=== PATIENT | male | born 1945 | race Hispanic/Latino ===

== ENCOUNTER 2016-05-04 06:36 | Day surgery (SDC) | payer MEDICARE ==
--- NOTE | 2016-04-23 13:28 | Anesthesia Consultation ---
Anesthesia Consult and Med Hx Date of service: 05/04/16 - Airway Anesthetic Teeth Evaluation: Dentures ROM Head & Neck: Adequate Mental/Hyoid Distance: Adequate Mallampati Class: Class II Intubation Access Assessment: Probably Good - Pulmonary Exam CTA: Yes - Cardiac Exam Cardiac Exam: RRR - Pre-Operative Health Status ASA Pre-Surgery Classification: ASA3 Proposed Anesthetic Plan: General - Pulmonary Hx Smoking: Yes (STOPPED X 10YRS-2PPD X 25YRS-CHEWING TABACCO NOW) COPD: Yes (USES INHALERS) Hx Sleep Apnea: No - Cardiovascular System Hx Hypertension: Yes (X 10 YRS) Hx Coronary Artery Disease: No Hx Peripheral Vascular Disease: Yes (LEFT AKA) - Central Nervous System 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 PATIENT DOES NOT WANT BLOCK FOR THIS SURGERY. MEDICAL CLEARANCE PENDING.
[2016-04-23 13:31] LABS: Basophils % (Auto) 1.1 % (0.0-1.8); Eosinophils % (Auto) 5.9 % (0.0-4.3); Hematocrit 41.5 % (35.5-45.6); Hemoglobin 13.7 gm/dl (11.8-15.2); Mean Corpuscular HGB Conc 33 % (32-34); Mean Corpuscular Hemoglobin 27 pg (28-32); Mean Corpuscular Volume 81 fl (84-94); Platelet Count 224 K/mm3 (140-440); Red Blood Count 5.12 M/mm3 (3.65-5.03); White Blood Count 8.5 K/mm3 (4.5-11.0)
[2016-04-23 13:47] LABS: Albumin 3.6 g/dL (3.9-5); Albumin/Globulin Ratio 0.9 %; Alkaline Phosphatase 77 units/L (35-129); Anion Gap 19 mmol/L; BUN/Creatinine Ratio 19.09; Bilirubin,Total 0.4 mg/dL (0.1-1.2); Blood Urea Nitrogen 21 mg/dL (9-20); Calcium 8.7 mg/dL (8.4-10.2); Carbon Dioxide 24 mmol/L (22-30); Chloride 98.7 mmol/L (98-107); Glucose 187 mg/dL (75-100); Sodium 137 mmol/L (137-145); Total Protein 7.5 g/dL (6.3-8.2)
[2016-04-23 15:02] LABS: Alanine Aminotransferase 11 units/L (7-56); Potassium 4.2 mmol/L (3.6-5.0)
[~2016-05-04 06:36] MED LIST: MARCAINE-EPI/PF 0.25%-1:200,000 INFILTRATI ONE; NACL 0.9% 1000 ML 1,000 ML IV SCH; PEPCID PO NR
[2016-05-04] MEDS ORDERED: NACL BACTERIOSTATIC INFILTRATI ONE (06:41)
[2016-05-04] MEDS ORDERED: XYLOCAINE MPF 2% ONE (07:11)
[2016-05-04] MEDS ORDERED: SUBLIMAZE ONE (07:11)
[2016-05-04] MEDS ORDERED: DIPRIVAN 10 MG/ML IV ONE (07:11)
[2016-05-04] MEDS ORDERED: ZEMURON IV ONE (07:11)
[2016-05-04] MEDS ORDERED: DILAUDID IV PRN (07:24)
[2016-05-04] MEDS ORDERED: ZOFRAN IV PRN (07:24)
--- NOTE | 2016-05-04 07:25 | Anesthesia Day of Surgery ---
Anesthesia Day of Surgery - Day of Surgery Patient Examined: Yes Patient H&P Reviewed: Yes Patient is NPO: Yes Cardiac Clearance: Yes
[2016-05-04] MEDS ORDERED: ANCEF/STERILE WATER 2 GM/20 ML IV NR (08:00)
[2016-05-04] MEDS ORDERED: ADRENALIN IV ONE (08:29)
[2016-05-04] MEDS ORDERED: NACL 0.9% IR ONE (08:29)
[2016-05-04] MEDS ORDERED: NEO SYNEPHRINE ONE (08:58)
[2016-05-04] MEDS ORDERED: ZOFRAN ONE (09:02)
[2016-05-04] MEDS ORDERED: DECADRON ONE (09:02)
[2016-05-04] MEDS ORDERED: NEOSTIGMINE ONE (09:46)
[2016-05-04] MEDS ORDERED: ROBINUL ONE (09:46)
[2016-05-04] MEDS ORDERED: MARCAINE-EPI/PF 0.25%-1:200,000 INFILTRATI ONE (10:00)
--- NOTE | 2016-05-04 10:18 | Short Stay Summary ---
Short Stay Documentation - Allergies and Medications Current Medications: Allergies codeine Allergy (Verified 04/14/16 14:01) Vomiting Home Medications Medication Instructions Recorded Confirmed Last Taken Type Aspirin [Aspirin TAB] 325 mg PO QDAY 04/14/16 05/04/16 1 Week Ago History Budesoni/Formotero 160-4.5(Nf) 1 puff INHALATION BID 04/14/16 04/14/16 05/04/16 03:30 History [Symbicort 160-4.5 (Nf)] Glimepiride [Amaryl] 2 mg PO QAM 04/14/16 04/14/16 05/03/16 History Losartan/Hydrochlorothiazide 1 tab PO DAILY 04/14/16 04/14/16 05/04/16 03:30 History [Losartan-Hctz 100-25 mg Tab] Pravastatin Sodium [Pravastatin] 40 mg PO QHS 04/14/16 04/14/16 05/03/16 History Tamsulosin [Flomax] 0.4 mg PO QDAY 04/14/16 04/14/16 05/03/16 History HYDROmorphone [Dilaudid] 2 mg PO Q6HR PRN #30 tablet 05/04/16 Unknown Rx Active Medications Cefazolin Sodium (Ancef/Sterile Water 2 Gm/20 Ml) 2 gm IV PREOP NR Stop: 05/04/16 23:59 Famotidine (Pepcid) 20 mg PO PREOP NR Stop: 05/04/16 23:59 Last Admin: 05/04/16 06:53 Dose: 20 mg Hydromorphone HCl (Dilaudid) 0.5 mg IV Q10MIN PRN PRN Reason: Pain , Severe (7-10) Stop: 05/04/16 23:00 Sodium Chloride (Nacl 0.9% 1000 Ml) 1,000 mls @ 75 mls/hr IV DIRECT GIRMA Last Admin: 05/04/16 07:05 Dose: 75 mls/hr - Brief post op/procedure progress note Date of procedure: 05/04/16 Pre-op diagnosis: persistent right shoulder pain, ac joint arthritis, rotator cuff tear, labr Post-op diagnosis: other (persistent right shoulder pain, acromioclavicular joint arthritis, massive rotator cuff tear, long head biceps tear, degenerative wear of anterior and superior labrum, extensive subacromial bursitis) Procedure: right shoulder arthroscopy subacromial decompression distal clavicle excision, debriedment of extensive subacromial bursitis, biceps tenotomy, debriedment of degenerative wear of anterior and superior labrum, arthroscopic repair massive rotator cuff tear Anesthesia: JEANNE Surgeon: DOROTEO GARCIA Estimated blood loss: minimal Pathology: none Condition: stable - Hospital course Hospital course: stable - Disposition Condition at discharge: Good Disposition: DISCHARGED TO HOME OR SELFCARE Short Stay Discharge Plan Activity: other (do not lift anything with right arm, sling to right arm, ice to right shoulder) Weight Bearing Status: Non-Weight Bearing Diet: regular Wound: keep clean and dry Special Instructions: keep arm in sling for 72 hours Follow up with: LESTER RODNEY MD [Primary Care Provider] - 7 Days Prescriptions: HYDROmorphone [Dilaudid] 2 mg PO Q6HR PRN #30 tablet PRN Reason: Analgesia
--- NOTE | 2016-05-04 10:49 | Post Anesthesia Evaluation ---
- Post Anesthesia Evaluation Patient Participated: Yes Airway Patent: Yes Stable Respiratory Function: Yes Nausea/Vomiting: No Temp > 96.8F: Yes Pain Manageable: Yes Adequeate Hydration: Yes Anesthesia Complications: No Block Receding Appropriately: Not Applicable Patient on Ventilator: No
--- NOTE | 2016-05-04 15:49 | Operative Report ---
PREOPERATIVE DIAGNOSES: Persistent right shoulder pain, advanced acromioclavicular joint arthritic changes with a type 3 acromion, partial biceps tear, possible labral tear, full thickness large rotator cuff tear. POSTOPERATIVE DIAGNOSES: Persistent right shoulder pain, advanced acromioclavicular joint arthritic changes with type 3 acromion, almost complete rupture of the long head of the biceps tendon, massive tearing of the rotator cuff involving both supra as well as infraspinatus tendons with retraction, partial tear of the subscapularis, degenerative wear of the anterior and superior labrum, extensive subacromial bursitis. PROCEDURE: Right shoulder arthroscopy, subacromial decompression, distal clavicle excision, debridement of extensive subacromial bursitis, debridement of degenerative wear of the anterior and superior labrum, biceps tenotomy followed by arthroscopic repair of a massive rotator cuff tear involving both supraspinatus as well as infraspinatus tendons. SURGEON: Dain Higgins MD MACHINE WORKER: Celestina Torres CSA. PREOPERATIVE ANTIBIOTICS: Ancef 2 grams IV within 1 hour of skin incision. DVT PROPHYLAXIS: SCD pumps to the nonoperative right lower extremity. OPERATIVE INSTRUMENTATION: 7 metallic Opus rotator cuff anchors with corresponding #2 Cobraided sutures. OPERATIVE COMPLICATIONS: None. PREOPERATIVE HISTORY AND PHYSICAL: This is a 70-year-old male who has had persistent progressively worsening right shoulder pain and weakness for greater than 6 months' time. The patient failed to improve despite extensive nonoperative treatment, had a marked limitation of his normal activities of daily living. Preoperative MRI scans showed to be a large tear involving the rotator cuff as well as advanced acromioclavicular joint arthritic changes, as well as possible tears of the anterior labrum as well as biceps tendon. The patient's MRI findings and diagnosis were discussed at length. After making sure the patient understood his diagnosis and all of his questions were answered. We then discussed treatment alternatives of surgical and nonsurgical including risks and benefits of both. After a long lengthy discussion, made sure that the patient's all questions were answered, he wished to proceed with operative intervention. This will entail a right shoulder arthroscopy, subacromial decompression, distal clavicle excision, debridement of extensive subacromial bursitis, arthroscopic possible open rotator cuff repair, possible labral repair, possible biceps tenodesis versus tenotomy. Again, the risks, which were discussed include but not exclusive of infection, blood loss, nerve damage, loss of range of motion, persistent pain. Again, the patient understood, all of his questions were answered, he wished to proceed with operative intervention. DESCRIPTION OF PROCEDURE: The patient was seen in the preoperative holding room area at which point, informed consent was reviewed and appropriate right upper extremity was identified and then marked. The patient was then brought back to the operating room and placed supine on a standard operating table, at which point, general anesthesia was administered, endotracheal tube inserted. After confirmation of adequate general anesthesia and checking appropriate placement of endotracheal tube, we then made sure that all bony prominences were well padded. There were no wrinkles in the compression stockings on the right lower extremity and SCD pumps were applied to the right lower extremity. The patient was then sat up in the beach chair position. Using the beach chair position, which was already in place and his hip was secured in a nice neutral position. The well left arm was secured in neutral position at the patient's side with the aid of a well arm contreras. A pillow was placed in the posterior aspect of bilateral lower extremity, placed in slight flexion of the hips and knees, making sure the popliteal fossa was free and clear. Right upper extremity was then examined under anesthesia. The patient seemed to have full range of motion. There was no instability. On examination under anesthesia, the right upper extremity was then prepped and draped in the usual sterile fashion. After prepping and draping, a timeout was called and appropriate right upper extremity was identified which again had been marked with proper ____ procedure by first making a standard posterior portal with a #15 blade. Once the portals were established, the blunt trocar was inserted into the intra-articular aspect of the glenohumeral joint. This went without difficulty or damage to articular cartilage. Once in place, the arthroscopic camera was immediately placed in the anterior aspect of the shoulder joint where we established an anterior portal by first inserting an 18 gauge spinal needle between the subscap and biceps tendon under direct arthroscopic visualization. Once confirmed to be in appropriate position, a 15 blade was then used to establish the anterior portal. Once the portal was established, blunt trocar was inserted via the portal site. Following the arthroscopic probe, we began our diagnostic arthroscopy, anterior aspect of the shoulder joint. The patient seemed to have partial thickness tearing of the subscapularis tendon accomplishing approximately 10% of the width of the tendon. Especially, glenohumeral joint showed to be normal articular cartilage of both the glenoid and humeral head. There was degenerative wear of both anterior and superior labrum. This was gently debrided using a 4.0 meniscal shaver down to a nice smooth stable healthy remaining tissue. The origin of which was seen to be stable and intact when probed. There was a negative drive-through sign. Inspection of the posterior labrum showed to be intact and stable when probed. There was a normal ____ without a Hill-Sachs lesion. Inspection of the axillary recess showed to be no loose bodies present. Inspection of the subscap anteriorly showed to be partial thickness tearing accomplishing approximately 10-15% of the width of the tendon, which was gently debrided using 4.0 meniscal shaver. Degenerative wear of the anterior and superior labrum also debrided using 4.0 meniscal shaver down to a smooth stable healthy remaining tissue. The middle glenohumeral ligament was intact. There was approximately 90% tearing of the long head of the biceps tendon intraarticularly and this was ____ performed a biceps tenotomy in standard fashion. Once completed, we evaluated the rotator cuff. There was seemed to be massive tearing of both the superior as well as infraspinatus tendons with retraction. The arthroscopic camera was then removed from the glenohumeral joint and then placed in subacromial space. Once in the subacromial space, we saw there was severe extensive subacromial bursitis. This was gently debrided by first making a third incision on the lateral aspect of the shoulder and allowing the distal clavicle well away from the axillary nerve. Once the extensive subacromial bursitis had been debrided, hemostasis was achieved with the Arthrocare ablation wand. The arm was placed through range of motion. There was a large type 3 acromion contributing to impingement. The soft tissue was removed from the undersurface of the acromion using the Arthrocare ablation wand. Then, using a 4.0 hooded barrel bur, we carried out a subacromial decompression in standard fashion with inferior superior, posterior, and anterior to make sure not to leave any residual anterior ____. We then turned our attention to the distal clavicle. This was also seemed to be arthritic and we removed approximately 6 mm of distal clavicle using a 4.0 hooded barrel bur. Once completed, we turned our attention to the massive tearing of the rotator cuff. The adhesions were debrided. The rotator cuff was freed up and using arthroscopic grasper, we were able to pull this back down to the rotator cuff footprint. The atrophic edge of the tear was debrided using 4.0 meniscal vinod as well as the arthroscopic punches. Once completed, we then sequentially passed seven #2 Cobraided sutures in a horizontal mattress type fashion using the open suture passer, then tapped by hand and then inserted seven metallic clips Opus rotator cuff anchors using ____ anatomic repair of the rotator cuff back down into the rotator cuff footprint. Once completed, the arm was placed to full range of motion. We saw good excellent stability of the repair. There was no impingement of the rotator cuff upon the undersurface of the acromion or the distal clavicle. The repair was also probed and seemed to be stable. Following this, the arthroscopic pump was turned off, making sure there was good hemostasis and once this was confirmed, ____ subacromial space using arthroscopic cannula. Following this, all the arthroscopic instrumentation was removed. The 3 portal sites were closed with 3-0 nylon in simple fashion. Adaptic, 4 x 4, ABD, paper tape and a small abduction sling was applied. The patient then sat down from the beach chair in the supine position, was awakened from general anesthesia without complications, taken to recovery room in stable condition. A standard postoperative orders were written. JOB# [id number] ALETHEA/TINO
[2016-05-04 16:41] VITALS: BP 119/61
== END 2016-05-04 12:05 | disposition home or self-care (01) ==
LOC: OR 06:36
PROVIDERS: ATTEND Orthopaedic Surgery
DX: S46.011A Strain of muscle(s) and tendon(s) of the rotator cuff of right shoulder, initial encounter (principal); S46.111A Strain of muscle, fascia and tendon of long head of biceps, right arm, initial encounter; S43.431A Superior glenoid labrum lesion of right shoulder, initial encounter; M75.51 Bursitis of right shoulder; E11.9 Type 2 diabetes mellitus without complications; I10 Essential (primary) hypertension; E78.00 Pure hypercholesterolemia, unspecified; J44.9 Chronic obstructive pulmonary disease, unspecified; Z85.46 Personal history of malignant neoplasm of prostate; Z89.612 Acquired absence of left leg above knee; Z87.891 Personal history of nicotine dependence; Z86.73 Personal history of transient ischemic attack (TIA), and cerebral infarction without residual deficits; Z79.899 Other long term (current) drug therapy; Z98.1 Arthrodesis status; X58.XXXA Exposure to other specified factors, initial encounter
CPT/HCPCS: 29823; 29824; 29826; 29827; 36415; 80053; 82962; 85025; A4217; J0171; J0690; J1100; J1170; J2370; J2405; J2704; J2710; J3010; J7030